=== PATIENT | male | born 1950 | race Caucasian/White ===

== ENCOUNTER 2018-10-26 11:13 | Emergency (ER) | payer OTHER, SELFPAY ==
[2018-10-26 11:52] VITALS: BP 145/69; PULSE 61; RESP 18; TEMP 37; O2SAT 97
--- NOTE | 2018-10-26 12:11 | W.ED.GENAD ---
Discharge Plan Disposition Patient Disposition: HOME Condition: Improving Discharge Details Chief Complaint: RashLesion Clinical Impression: Side effect of medication Primary Care Provider: Marianela Rosario ED Provider: Surya Armas Home Meds and New Rx's Prescriptions: New prednisone 20 mg tablet 40 mg PO DAILY 5 Days Qty: 10 RF: 0 Continued tamsulosin 0.4 MG capsule 0.4 mg PO HS RF: 0 mirtazapine 30 MG tablet 30 mg PO HS RF: 0 lisinopril 10 MG tablet 10 mg PO QAM RF: 0 acamprosate 333 MG tablet,delayed release (DR/EC) 666 mg PO TID RF: 0 quetiapine [Seroquel] 50 MG tablet 50 mg PO HS RF: 0 Discharge Instructions Additional Instructions: Please take prednisone as prescribed for 5 days time. May continue the topical medications previously prescribed as well as your regular medications. Follow-up with dermatology upon your return to [place]. Return to the emergency department if you develop fever, redness, discharge from the wounds or any other concerns Medical Decision Making 67-year-old male presents from home complaining of burning irritation of the left hand and left cheek that began 9 days ago when he received local anesthesia for skin biopsy. Is not had a fever, no discharge, no overlying redness. It was minimally improved with Benadryl. He is afebrile, well-appearing. I feel this is consistent with mild allergic reaction to localized injection. I will treat with 5 days of prednisone. Discussed with him home management as well as return precautions. He stable for discharge at this time HPI General Mode of arrival: ambulatory. Date/Time Provider Initiated Documentation: 10/26/18 11:32. Limitations to Documentation: no limitations. History of Present Illness 67 year old M presents to the emergency department with the chief complaint of Burning after local anesthesia left cheek and left hand 9 days ago, described as moderate, Quality is described as burning and dull, and is localized to the face, left and upper extremity. Patient started experiencing this day(s) and it has been intermittent. No relieving factors improve symptom(s), No exacerbating factors reported . Patient did receive the following treatments prior to arrival, none Related Data Home Medications Medication Instructions Recorded Confirmed acamprosate 666 mg PO TID 12/20/16 12/20/16 lisinopril 10 mg PO QAM 12/20/16 12/20/16 mirtazapine 30 mg PO HS 12/20/16 12/20/16 quetiapine [Seroquel] 50 mg PO HS 12/20/16 12/20/16 tamsulosin 0.4 mg PO HS 12/20/16 12/20/16 prednisone 40 mg PO DAILY 5 Days #10 tab 10/26/18 Previous Rx's Medication Instructions Recorded prednisone 40 mg PO DAILY 5 Days #10 tab 10/26/18 Allergies Allergy/AdvReac Type Severity Reaction Status Date / Time adhesive tape AdvReac Unverified 12/20/16 14:03 latex AdvReac Unverified 12/20/16 14:03 General Stated Complaint: RashLesion CAROL: 3 Review of Systems Review of Systems No motor weakness. No rash, no fever. 6 systems reviewed and otherwise negative [facility] Social History Do you feel safe in your relationship?: Yes Exam Narrative Exam Narrative: GEN: awake, alert, oriented 3. Pleasant, well groomed, interactive. HEAD: Normocephalic, atraumatic ENT: Mucous membranes moist, oropharynx unremarkable, External ear exam unremarkable. Left cheek with healing skin biopsy per EYES: PERRL, EOMI NECK: Full ROM, no JESSICA, no menigismus CHEST/RESP: Nontender, clear to auscultation bilateral, no wheeze/rhonchi/rales CARDIOVASCULAR: RRR, no murmur, rub jared. 2+ Rad pulse bilateral EXT: Full ROM, no edema, no rash. Left hand dorsal surface with healing biopsy. No rash. No significant tenderness. Full range of motion. Sensation intact throughout Neuro: Grossly normal neurologic exam, conversant, interactive. Psych: Speech fluent, thoughts congruent, affect normal Course Vital Signs Temperature 37.0 C 10/26/18 11:52 Pulse 61 10/26/18 11:52 Respiratory Rate 18 10/26/18 11:52 Blood Pressure 145/69 H 10/26/18 11:52 Pulse Oximetry 97 10/26/18 11:52 Temperature 37.0 C 10/26/18 11:52 Temperature Source Temporal Artery Scan 10/26/18 11:52 Pulse 61 10/26/18 11:52 Respiratory Rate 18 10/26/18 11:52 Blood Pressure 145/69 H 10/26/18 11:52 Pulse Oximetry 97 10/26/18 11:52 Oxygen Delivery Method Room Air 10/26/18 11:52 Oxygen Flow Rate 0 10/26/18 11:52 Pain Level 6 10/26/18 11:52
--- NOTE | 2018-10-26 12:14 | ED.GENADUL_ITS ---
Discharge Plan Disposition Patient Disposition: HOME Condition: Improving Discharge Details Chief Complaint: RashLesion Clinical Impression: Side effect of medication Primary Care Provider: Marianela Rosario ED Provider: Surya Armas Home Meds and New Rx's Prescriptions: New prednisone 20 mg tablet 40 mg PO DAILY 5 Days Qty: 10 RF: 0 Continued tamsulosin 0.4 MG capsule 0.4 mg PO HS RF: 0 mirtazapine 30 MG tablet 30 mg PO HS RF: 0 lisinopril 10 MG tablet 10 mg PO QAM RF: 0 acamprosate 333 MG tablet,delayed release (DR/EC) 666 mg PO TID RF: 0 quetiapine [Seroquel] 50 MG tablet 50 mg PO HS RF: 0 Discharge Instructions Additional Instructions: Please take prednisone as prescribed for 5 days time. May continue the topical medications previously prescribed as well as your regular medications. Follow-up with dermatology upon your return to [place]. Return to the emergency department if you develop fever, redness, discharge from the wounds or any other concerns Medical Decision Making 67-year-old male presents from home complaining of burning irritation of the left hand and left cheek that began 9 days ago when he received local anesthesia for skin biopsy. Is not had a fever, no discharge, no overlying redness. It was minimally improved with Benadryl. He is afebrile, well-appearing. I feel this is consistent with mild allergic reaction to localized injection. I will treat with 5 days of prednisone. Discussed with him home management as well as return precautions. He stable for discharge at this time HPI General Mode of arrival: ambulatory . Date/Time Provider Initiated Documentation: 10/26/18 11:32 . Limitations to Documentation: no limitations . History of Present Illness 67 year old M presents to the emergency department with the chief complaint of Burning after local anesthesia left cheek and left hand 9 days ago, described as moderate, Quality is described as burning and dull, and is localized to the face, left and upper extremity. Patient started experiencing this day(s) and it has been intermittent. No relieving factors improve symptom(s), No exacerbating factors reported . Patient did receive the following treatments prior to arrival, none Related Data Home Medications Medication Instructions Recorded Confirmed acamprosate 666 mg PO TID 12/20/16 12/20/16 lisinopril 10 mg PO QAM 12/20/16 12/20/16 mirtazapine 30 mg PO HS 12/20/16 12/20/16 quetiapine [Seroquel] 50 mg PO HS 12/20/16 12/20/16 tamsulosin 0.4 mg PO HS 12/20/16 12/20/16 prednisone 40 mg PO DAILY 5 Days #10 tab 10/26/18 Previous Rx's Medication Instructions Recorded prednisone 40 mg PO DAILY 5 Days #10 tab 10/26/18 Allergies Allergy/AdvReac Type Severity Reaction Status Date / Time adhesive tape AdvReac Unverified 12/20/16 14:03 latex AdvReac Unverified 12/20/16 14:03 General Stated Complaint: RashLesion CAROL: 3 Review of Systems Review of Systems No motor weakness. No rash, no fever. 6 systems reviewed and otherwise negative [facility] Social History Do you feel safe in your relationship?: Yes Exam Narrative Exam Narrative: GEN: awake, alert, oriented 3. Pleasant, well groomed, interactive. HEAD: Normocephalic, atraumatic ENT: Mucous membranes moist, oropharynx unremarkable, External ear exam unremarkable. Left cheek with healing skin biopsy per EYES: PERRL, EOMI NECK: Full ROM, no JESSICA, no menigismus CHEST/RESP: Nontender, clear to auscultation bilateral, no wheeze/rhonchi/rales CARDIOVASCULAR: RRR, no murmur, rub jared. 2+ Rad pulse bilateral EXT: Full ROM, no edema, no rash. Left hand dorsal surface with healing biopsy. No rash. No significant tenderness. Full range of motion. Sensation intact throughout Neuro: Grossly normal neurologic exam, conversant, interactive. Psych: Speech fluent, thoughts congruent, affect normal Course Vital Signs Temperature 37.0 C 10/26/18 11:52 Pulse 61 10/26/18 11:52 Respiratory Rate 18 10/26/18 11:52 Blood Pressure 145/69 H 10/26/18 11:52 Pulse Oximetry 97 10/26/18 11:52 Temperature 37.0 C 10/26/18 11:52 Temperature Source Temporal Artery Scan 10/26/18 11:52 Pulse 61 10/26/18 11:52 Respiratory Rate 18 10/26/18 11:52 Blood Pressure 145/69 H 10/26/18 11:52 Pulse Oximetry 97 10/26/18 11:52 Oxygen Delivery Method Room Air 10/26/18 11:52 Oxygen Flow Rate 0 10/26/18 11:52 Pain Level 6 10/26/18 11:52
[2018-10-26 12:32] VITALS: BP 145/69; PULSE 61; RESP 18; TEMP 37; O2SAT 97
== END 2018-10-26 12:29 | disposition home or self-care (01) ==
LOC: ER 12:22
PROVIDERS: Emergency Provider Emergency Medicine
DX: T78.40XA Allergy, unspecified, initial encounter (principal); R51 Headache; M79.642 Pain in left hand
CPT/HCPCS: 99283